=== PATIENT | male | born 1945 | race African-American/Black ===

== ENCOUNTER → 2017-02-09 | Outpatient (CLI) | payer MEDICARE, OTHER ==
[2017-02-09 14:36] LABS: ABSOLUTE EOSINOPHILS # (AUTO) 0.1 10^3/uL (0.0-0.6); ABSOLUTE LYMPHOCYTES (AUTO) 2.7 10^3/uL (0.5-4.7); ABSOLUTE MONOCYTES (AUTO) 0.5 10^3/uL (0.1-1.4); ABSOLUTE NEUT (AUTO) 4.5 10^3/uL (1.7-8.2); BASOPHILS % (AUTO) 0.6 % (0-2); EOSINOPHILS % (AUTO) 1.5 % (0-6); HEMATOCRIT 42.9 % (37.9-51.0); HEMOGLOBIN 14.3 g/dL (13.5-17.0); LYMPHOCYTES % (AUTO) 34.6 % (13-45); MEAN CORPUSCULAR HEMOGLOBIN 27.3 pg (27.0-33.4); MEAN CORPUSCULAR HGB CONC 33.2 g/dL (32.0-36.0); MEAN CORPUSCULAR VOLUME 82 fl (80-97); MONOCYTES % (AUTO) 6.4 % (3-13); RED BLOOD COUNT 5.22 10^6/uL (4.35-5.55); RED CELL DISTRIBUTION WIDTH 14.5 % (11.5-14.0); SEGMENTED NEUTROPHILS % (AUTO) 56.9 % (42-78); WHITE BLOOD COUNT 7.9 10^3/uL (4.0-10.5)
[2017-02-11 12:00] LABS: IMMUNOGLOBULIN E 87 IU/mL (0-100)
[2017-02-15 00:36] LABS: E001-IGE CAT DANDER <0.10 kU/L (Class 0); E005-IGE DOG DANDER <0.10 kU/L (Class 0); G002-IGE BERMUDA GRASS <0.10 kU/L (Class 0); G006-IGE TIMOTHY GRASS <0.10 kU/L (Class 0); G010-IGE JOHNSON GRASS <0.10 kU/L (Class 0); G017-IGE BAHIA GRASS <0.10 kU/L (Class 0); I100-IGE COCKROACHAMERICAN <0.10 kU/L (Class 0); M001-IGE PENICILLIUM CHRYSOGEN <0.10 kU/L (Class 0); M002-IGE CLADOSPORIUM HERBARUM <0.10 kU/L (Class 0); M003-IGE ASPERGILLUS FUMIGATUS <0.10 kU/L (Class 0); M004-IGE MUCOR RACEMOSUS <0.10 kU/L (Class 0); M005-IGE CANDIDA ALBICANS <0.10 kU/L (Class 0); M006-IGE ALTERNARIA ALTERNATA <0.10 kU/L (Class 0); M008-IGE SETOMELANOMMA ROSTRAT <0.10 kU/L (Class 0); M009-IGE FUSARIUM PROLIFERATUM <0.10 kU/L (Class 0); M010-IGE STEMPHYLIUM HERBARUM <0.10 kU/L (Class 0); M012-IGE AUREOBASIDI PULLULANS <0.10 kU/L (Class 0); M013-IGE PHOMA BETAE <0.10 kU/L (Class 0); T001-IGE MAPLE/BOX ELDER <0.10 kU/L (Class 0); T003-IGE BIRCH SILVER <0.10 kU/L (Class 0); T006-IGE CEDAR MOUNTAIN <0.10 kU/L (Class 0); T007-IGE OAK WHITE <0.10 kU/L (Class 0); T008-IGE ELM AMERICAN (WHITE <0.10 kU/L (Class 0); T011-IGE MAPLE LEAF SYCAMORE <0.10 kU/L (Class 0); T041-IGE HICKORY WHITE <0.10 kU/L (Class 0); T211-IGE SWEET GUM <0.10 kU/L (Class 0); W001-IGE RAGWEED SHORT/COMMO <0.10 kU/L (Class 0); W006-IGE MUGWORT <0.10 kU/L (Class 0); W009-IGE PLANTAIN ENGLISH <0.10 kU/L (Class 0); W014-IGE PIGWEED ROUGH <0.10 kU/L (Class 0); W018-IGE SHEEP SORREL(DOCK) <0.10 kU/L (Class 0); W020-IGE NETTLE <0.10 kU/L (Class 0)
[2017-02-15 07:17] LABS: M014-IGE EPICOCCUM PURPURASCEN <0.10 kU/L (Class 0)
== END ==
LOC: OD 13:20
PROVIDERS: ATTEND Internal Medicine Pulmonary Disease
DX: R06.00 Dyspnea, unspecified (principal)
CPT/HCPCS: 36415; 82785; 85025; 86003

== ENCOUNTER → 2017-02-09 | Outpatient (CLI) | payer MEDICARE, OTHER | LOC: RAD 13:57 | PROVIDERS: ATTEND Internal Medicine Pulmonary Disease | DX: R06.00 Dyspnea, unspecified (principal); J43.9 Emphysema, unspecified | CPT/HCPCS: 36415; 71250; 82785; 85025; 86003 ==

== ENCOUNTER → 2018-04-25 | Outpatient (CLI) | payer MEDICARE, OTHER ==
--- NOTE | 2018-04-25 14:50 | RADIOLOGY REPORT (SQ) ---
EXAM DESCRIPTION: CT CHEST WITHOUT COMPLETED DATE/TIME: 04/25/2018 2:21 pm REASON FOR STUDY: EMPHYSEMA, UNSPEC (J43.9) J43.9 EMPHYSEMA, UNSPECIFIED COMPARISON: 02/09/2017. TECHNIQUE: CT scan performed of the chest without intravenous contrast. Images reviewed with lung, soft tissue and bone windows. Reconstructed coronal and sagittal MPR images reviewed. All images st ored on PACS. All CT scanners at this facility use dose modulation, iterative reconstruction, and/or weight based d osing when appropriate to reduce radiation dose to as low as reasonably achievable (ALARA). [facility]: Dose Right [facility]: CareDose [facility]: Dose Right [facility]: Teradose 4D [facility]: Venturepax RADIATION DOSE: CT Rad equipment meets quality standard of care and radiation dose reduction techniq ues were employed. CTDIvol: 7.1 mGy. DLP: 298 mGy-cm. mGy. LIMITATIONS: No technical limitations. FINDINGS: LUNGS AND PLEURA: Prominent bullous emphysema. No masses, infiltrates, or pneumothorax. No pleural effusions or pleural calcifications. HILAR AND MEDIASTINAL STRUCTURES: No identified masses or abnormal nodes. No obvious aneurysm. HEART AND VASCULAR STRUCTURES: No aneurysm. Coronary artery calcifications. No pericardial effusion . UPPER ABDOMEN: No significant findings. Limited exam. THYROID AND OTHER SOFT TISSUES: No masses. No adenopathy. BONES: No significant finding. HARDWARE: None in the chest. OTHER: No other significant findings. IMPRESSION: CHRONIC BULLOUS EMPHYSEMA. NO ACUTE FINDINGS. NO SIGNIFICANT CHANGE. TECHNICAL DOCUMENTATION: JOB ID: [id number] Quality ID # [id number]: Final reports with documentation of one or more dose reduction techniques (e.g., Au tomated exposure control, adjustment of the mA and/or kV according to patient size, use of iterative reconstruction technique) 2010 [employer]- All Rights Reserved Reading location - IP/workstation name: [email or web address]
== END ==
LOC: RAD 14:04
PROVIDERS: ATTEND Physician Assistant
DX: J43.9 Emphysema, unspecified (principal)
CPT/HCPCS: 71250

== ENCOUNTER 2018-08-25 13:11 | Emergency (ER) | payer MEDICARE, OTHER ==
--- NOTE | 2018-08-25 13:32 | ER Document Report ---
ED Medical Screen (RME) - General Chief Complaint: Chest Pain Stated Complaint: CHEST PAIN Time Seen by Provider: 08/25/18 13:31 Notes: Patient is a 72-year-old male status post recent CABG on 08/02/2018 that presents to the emergency department for chief complaint of chest pain. Patient states he started having chest pain this morning, the left side of his chest, it is tender to palpate, but he did not have this pain before. He recently had CABG as noted, and is followed at [facility]. ROS: Other than noted above, the 12 point review of systems was reviewed with the patient and were negative, all pertinent findings are included in the HPI. PHYSICAL EXAMINATION: Vital signs reviewed. GENERAL: Well-appearing, well-nourished and in no acute distress. HEAD: Atraumatic, normocephalic. EYES: Pupils equal round extraocular movements intact, conjunctiva are normal. ENT: Nares patent NECK: Normal range of motion CV: Heart regular rate and rhythm LUNGS: No respiratory distress, reproducible chest wall tenderness on the left. Patient still has sternotomy Steri-Strips present, and subxiphoid dressing, where his presumed mediastinal chest tubes were in place. No active drainage noted. Musculoskeletal: Normal range of motion NEUROLOGICAL: Normal speech PSYCH: Normal mood, normal affect. MDM: Patient seen and examined for rapid initial assessment. Vital signs reviewed. A comprehensive ED assessment and evaluation of the patient, analysis of test results and completion of the medical decision making process will be conducted by additional ED providers. *Note is created using voice recognition software and may contain spelling, syntax or grammatical errors. TRAVEL OUTSIDE OF THE [place] IN LAST 30 DAYS: No - Related Data Allergies/Adverse Reactions: No Known Allergies Allergy (Verified 08/25/18 13:31) Past Medical History - Past Medical History Cardiac Medical History: Reports: Hx Coronary Artery Disease, Hx Heart Attack - [place] 07 STENT X 1, Hx Hypercholesterolemia, Hx Hypertension Pulmonary Medical History: Reports: Hx COPD Neurological Medical History: Denies: Hx Seizures Endocrine Medical History: Reports: Hx Diabetes Mellitus Type 2 Musculoskeltal Medical History: Reports Hx Arthritis - GENERALIZED Past Surgical History: Reports: Hx Cardiac Catheterization, Hx Coronary Stent, Hx Orthopedic Surgery - Immunizations Hx Diphtheria, Pertussis, Tetanus Vaccination: Yes Physical Exam - Vital signs Vitals: Temp Pulse Resp BP Pulse Ox 97.7 F 83 18 136/81 H 98 08/25/18 13:29 08/25/18 13:29 08/25/18 13:29 08/25/18 13:29 08/25/18 13:29 Course - Vital Signs Vital signs: Temp Pulse Resp BP Pulse Ox 97.7 F 83 18 136/81 H 98 08/25/18 13:29 08/25/18 13:29 08/25/18 13:29 08/25/18 13:29 08/25/18 13:29 Doctor's Discharge - Discharge Referrals: NICOLE LANCE PA-C [Primary Care Provider] - Follow up as needed
[2018-08-25 14:24] LABS: ABSOLUTE BASOPHILS # (AUTO) 0.1 10^3/uL (0.0-0.2); ABSOLUTE EOSINOPHILS # (AUTO) 0.3 10^3/uL (0.0-0.6); ABSOLUTE MONOCYTES (AUTO) 0.5 10^3/uL (0.1-1.4); ABSOLUTE NEUT (AUTO) 5.3 10^3/uL (1.7-8.2); BASOPHILS % (AUTO) 0.9 % (0-2); EOSINOPHILS % (AUTO) 3.6 % (0-6); HEMATOCRIT 35.9 % (37.9-51.0); HEMOGLOBIN 12.3 g/dL (13.5-17.0); LYMPHOCYTES % (AUTO) 24.9 % (13-45); MEAN CORPUSCULAR HEMOGLOBIN 27.7 pg (27.0-33.4); MEAN CORPUSCULAR HGB CONC 34.3 g/dL (32.0-36.0); MEAN CORPUSCULAR VOLUME 81 fl (80-97); MONOCYTES % (AUTO) 5.6 % (3-13); PLATELET COUNT 547 10^3/uL (150-450); RED BLOOD COUNT 4.43 10^6/uL (4.35-5.55); RED CELL DISTRIBUTION WIDTH 14.4 % (11.5-14.0); TOTAL CELLS COUNTED % (AUTO) 100 %; WHITE BLOOD COUNT 8.2 10^3/uL (4.0-10.5)
[2018-08-25] MEDS ORDERED: ASPIRIN 81 MG TABLET, CHEWABLE PO ONE (14:30)
[2018-08-25 14:35] LABS: ALANINE AMINOTRANSFERASE 39 U/L (21-72); ALKALINE PHOSPHATASE 81 U/L (38-126); ANION GAP 12 (5-19); ASPARTATE AMINO TRANSFERASE 26 U/L (17-59); BILIRUBIN,DIRECT 0.2 mg/dL (0.0-0.4); BILIRUBIN,TOTAL 0.4 mg/dL (0.2-1.3); BLOOD UREA NITROGEN 12 mg/dL (7-20); CARBON DIOXIDE 29 mmol/L (22-30); CHLORIDE 100 mmol/L (98-107); GLUCOSE 256 mg/dL (75-110); POTASSIUM 4.4 mmol/L (3.6-5.0); SODIUM 141.4 mmol/L (137-145); TOTAL PROTEIN 7.3 g/dL (6.3-8.2)
--- NOTE | 2018-08-25 14:50 | RADIOLOGY REPORT (SQ) ---
EXAM DESCRIPTION: CHEST SINGLE VIEW COMPLETED DATE/TIME: 08/25/2018 2:28 pm REASON FOR STUDY: chest pain, s/p CABG 08/02 COMPARISON: 05/21/2016 EXAM PARAMETERS: NUMBER OF VIEWS: One view. TECHNIQUE: Single frontal radiographic view of the chest acquired. RADIATION DOSE: NA LIMITATIONS: None. FINDINGS: LUNGS AND PLEURA: Stable examination demonstrating chronic bilateral bullous changes. No new focal consolidation, pleural effusion, or pneumothorax. MEDIASTINUM AND HILAR STRUCTURES: No masses. Contour normal. HEART AND VASCULAR STRUCTURES: Heart normal in size. Normal vasculature. BONES: No acute findings. HARDWARE: Midline surgical changes. OTHER: No other significant finding. IMPRESSION: Stable pulmonary bullae bilaterally. No evidence of acute cardiopulmonary abnormality. TECHNICAL DOCUMENTATION: JOB ID: [id number] [employer]- All Rights Reserved Reading location - IP/workstation name: [email or web address]
--- NOTE | 2018-08-25 15:05 | ER Document Report ---
ED Cardiac - General Information source: Patient TRAVEL OUTSIDE OF THE [place] IN LAST 30 DAYS: No <RE MARTIN - Last Filed: 08/25/18 15:47> <JAKE LOWERY - Last Filed: 08/25/18 23:18> - General Chief Complaint: Chest Pain Stated Complaint: CHEST PAIN Time Seen by Provider: 08/25/18 13:31 Notes: 72-year-old male status post quadruple bypass 3 weeks ago at [facility] who presents to the emergency department today with complaints of chest pain which began this morning around 1100. Patient states he was sitting down to take his morning medications when this chest pain occurred. Patient does note that he did not take any of his morning medications prior to arrival here. Patient states he has nitroglycerin at home for his pain but he did not take any. Patient states the last time he took nitroglycerin at home for his pain was in 2006. Patient states he had stents placed in 2006 but did not have any placed between that time in 2006 and the CABG 3 weeks ago. Patient is on Plavix and aspirin and has been since the stent was placed in 2006. Patient states he has had a slight cough but he tries not to cough due to the CABG incision pain that occurs with the cough. Patient denies any new or increasing pain related to his CABG scar. Patient denies any falls, shortness of breath, nausea, or discharge/pain in the incision. (RE MARTIN) - Related Data Allergies/Adverse Reactions: No Known Allergies Allergy (Verified 08/25/18 13:31) Past Medical History - General Information source: Patient - Social History Smoking Status: Never Smoker Cigarette use (# per day): No Chew tobacco use (# tins/day): No Frequency of alcohol use: None Drug Abuse: None Lives with: Family Family History: Reviewed & Not Pertinent Patient has suicidal ideation: No Patient has homicidal ideation: No - Past Medical History Cardiac Medical History: Reports: Hx Coronary Artery Disease, Hx Heart Attack - [place] 07 STENT X 1, Hx Hypercholesterolemia, Hx Hypertension Pulmonary Medical History: Reports: Hx COPD Endocrine Medical History: Reports: Hx Diabetes Mellitus Type 2 Musculoskeletal Medical History: Reports Hx Arthritis - GENERALIZED Past Surgical History: Reports: Hx Cardiac Catheterization, Hx Cardiac Surgery - bypass [facility] 08/02/18, Hx Coronary Stent, Hx Orthopedic Surgery - Immunizations Hx Diphtheria, Pertussis, Tetanus Vaccination: Yes Hx Pneumococcal Vaccination: 08/05/15 <RE MARTIN - Last Filed: 08/25/18 15:47> Review of Systems - Review of Systems Constitutional: No symptoms reported EENT: No symptoms reported Cardiovascular: See HPI, Chest pain Respiratory: See HPI, Cough. denies: Short of breath Gastrointestinal: denies: Nausea Genitourinary: No symptoms reported Male Genitourinary: No symptoms reported Musculoskeletal: No symptoms reported Skin: No symptoms reported Hematologic/Lymphatic: No symptoms reported Neurological/Psychological: No symptoms reported -: Yes All other systems reviewed and negative <RE MARTIN - Last Filed: 08/25/18 15:47> Physical Exam - Vital signs Interpretation: Normal - General General appearance: Appears well, Alert - HEENT Head: Normocephalic, Atraumatic Eyes: Normal Pupils: PERRL - Respiratory Respiratory status: No respiratory distress Chest status: Tender - L chest wall TTP. Wound c/w recent CABG, CDI. No erythema, induration or fluctuance Breath sounds: Normal Chest palpation: Normal - Cardiovascular Rhythm: Regular Heart sounds: Normal auscultation Murmur: No - Abdominal Inspection: Normal Distension: No distension Bowel sounds: Normal Tenderness: Nontender Organomegaly: No organomegaly - Back Back: Normal, Nontender - Extremities General upper extremity: Normal inspection, Nontender, Normal color, Normal ROM , Normal temperature General lower extremity: Normal inspection, Nontender, Normal color, Normal ROM , Normal temperature, Normal weight bearing. No: Kierra's sign - Neurological Neuro grossly intact: Yes Cognition: Normal Orientation: AAOx4 Halle Coma Scale Eye Opening: Spontaneous Halle Coma Scale Verbal: Oriented [place]alle Coma Scale Motor: Obeys Commands [place] Coma Scale Total: 15 Speech: Normal Motor strength normal: LUE, RUE, LLE, RLE Sensory: Normal - Psychological Associated symptoms: Normal affect, Normal mood - Skin Skin Temperature: Warm Skin Moisture: Dry Skin Color: Normal <JAKE LOWERY - Last Filed: 08/25/18 23:18> - Vital signs Vitals: Temp Pulse Resp BP Pulse Ox 97.7 F 83 18 136/81 H 98 08/25/18 13:29 08/25/18 13:29 08/25/18 13:29 08/25/18 13:29 08/25/18 13:29 Course - Laboratory Result Diagrams: 08/25/18 13:53 08/25/18 13:53 <RE MRATIN - Last Filed: 08/25/18 15:47> - Laboratory Result Diagrams: 08/25/18 13:53 08/25/18 13:53 <JAKE LOWERY - Last Filed: 08/25/18 23:18> - Re-evaluation Re-evalutation: 08/25/18 15:47 [facility] called back, states to repeat troponin at 1700 and discharge home with Monday follow-up if it does not bump, if it does he will accept the patient for transfer. (RE MARTIN) 08/25/18 23:15 Patient with recent CABG on 05 02. Patient comes in complaining of chest pain. No nitro at home. Has been taking his medications as prescribed. Troponin negative x2. Discussed with cardiology at [facility] who states the patient can go home and follow-up Monday as scheduled with his digital communications manager, Dr. Cage. No further chest pain or symptoms. Patient would like to go home. Will return if any further chest pain or further concerns. Stable for discharge. (JAKE LOWERY) - Vital Signs Vital signs: Temp Pulse Resp BP Pulse Ox 98.3 F 70 18 105/69 100 08/25/18 19:16 08/25/18 19:16 08/25/18 19:16 08/25/18 19:16 08/25/18 19:16 - Laboratory Laboratory results interpreted by me: 08/25/18 08/25/18 13:53 13:53 Hgb 12.3 L Hct 35.9 L RDW 14.4 H Plt Count 547 H Glucose 256 H Discharge <RE MARTIN - Last Filed: 08/25/18 15:47> <JAKE LOWERY - Last Filed: 08/25/18 23:18> - Discharge Clinical Impression: Chest pain Qualifiers: Chest pain type: unspecified Qualified Code(s): R07.9 - Chest pain, unspecified Condition: Stable Disposition: HOME, SELF-CARE Instructions: Chest Pain of Unclear Cause ([facility]) Additional Instructions: Please follow-up with your digital communications manager on Monday as scheduled. Please return immediately if you have any further concerns. Referrals: NICOLE LANCE PA-C [ALLIED HEALTH PROFESSIONAL] - Follow up as needed Scribe Attestation: 08/25/18 23:18 I personally performed the services described in the documentation, reviewed and edited the documentation which was dictated to the scribe in my presence, and it accurately records my words and actions. (JAKE LOWERY) Scribe Documentation - Scribe Written by Scribe:: Shaniqua Archibald, 08/25/2018 1520 acting as scribe for :: Simeon <RE MARTIN - Last Filed: 08/25/18 15:47>
[2018-08-25 19:17] VITALS: BP 105/69
--- NOTE | 2018-08-25 22:27 | EKG REPORT ---
SEVERITY:- ABNORMAL ECG - SINUS RHYTHM T ABNORMALITIES, LATERAL LEADS , NEW, SINCE 05/21/16 EKG : Confirmed by: Angel Cottrell MD 25-Aug-2018 22:26:34
== END 2018-08-25 19:16 | disposition home or self-care (01) ==
LOC: ER 13:11
DX: R07.9 Chest pain, unspecified (principal); R05 Cough; I25.10 Atherosclerotic heart disease of native coronary artery without angina pectoris; I10 Essential (primary) hypertension; I25.2 Old myocardial infarction; E11.9 Type 2 diabetes mellitus without complications; J44.9 Chronic obstructive pulmonary disease, unspecified; Z95.1 Presence of aortocoronary bypass graft; Z95.5 Presence of coronary angioplasty implant and graft; Z79.02 Long term (current) use of antithrombotics/antiplatelets; Z79.82 Long term (current) use of aspirin
CPT/HCPCS: 93005; 99285; 36415; 85025; 80053; 84484; 71045; 93010; A9270

== ENCOUNTER → 2019-07-01 | Outpatient (CLI) | payer MEDICARE, OTHER ==
--- NOTE | 2019-07-01 13:27 | RADIOLOGY REPORT (SQ) ---
EXAM DESCRIPTION: CT CHEST WITHOUT COMPLETED DATE/TIME: 07/01/2019 10:46 am REASON FOR STUDY: J43.9 EMPHYSEMA, UNSPECIFIED J43.9 EMPHYSEMA, UNSPECIFIED COMPARISON: CT chest 04/25/2018, 02/09/2017, 05/21/2016 TECHNIQUE: CT scan performed of the chest without intravenous contrast. Images reviewed with lung, soft tissue and bone windows. Reconstructed coronal and sagittal MPR images reviewed. All images st ored on PACS. All CT scanners at this facility use dose modulation, iterative reconstruction, and/or weight based d osing when appropriate to reduce radiation dose to as low as reasonably achievable (ALARA). [facility]: Dose Right [facility]: CareDose [facility]: Dose Right [facility]: Teradose 4D [facility]: YEOXIN [employer] RADIATION DOSE: CT Rad equipment meets quality standard of care and radiation dose reduction techniq ues were employed. CTDIvol: 6.2 mGy. DLP: 274 mGy-cm. mGy. LIMITATIONS: No technical limitations. FINDINGS: LUNGS AND PLEURA: Abnormal enlarged airspaces are present around the periphery of both upp er lobes, and along the periphery of both lower lobes. Centrilobular emphysema is seen in the upper lobes as well. These findings are similar compared to studies dating back to 2016. No worrisome pulmonary nodules. No acute infiltrates. No pleural effusion. No pneumothorax. HILAR AND MEDIASTINAL STRUCTURES: No identified masses or abnormal nodes. No obvious aneurysm. HEART AND VASCULAR STRUCTURES: No aneurysm. No pericardial effusion. Post sternotomy for CABG. UPPER ABDOMEN: No significant findings. Limited exam. THYROID AND OTHER SOFT TISSUES: No masses. No adenopathy. BONES: No significant finding. HARDWARE: None in the chest. OTHER: No other significant findings. IMPRESSION: Stable appearance of the lungs, with enlarged airspaces as above TECHNICAL DOCUMENTATION: JOB ID: [id number] Quality ID # [id number]: Final reports with documentation of one or more dose reduction techniques (e.g., Au tomated exposure control, adjustment of the mA and/or kV according to patient size, use of iterative reconstruction technique) 2010 [employer]- All Rights Reserved Reading location - IP/workstation name: [email or web address]
== END ==
LOC: RAD 10:36
PROVIDERS: ATTEND Internal Medicine Pulmonary Disease
DX: J43.9 Emphysema, unspecified (principal)
CPT/HCPCS: 71250